=== PATIENT | female | born 1990 | race Caucasian/White ===

== ENCOUNTER 2017-06-06 14:24 | Inpatient (IN) | payer OTHER ==
[~2017-06-06] VITALS: Ht 165.1 cm; Wt 72.7 kg
[~2017-06-06 14:24] MED LIST: IBUP800T25 PO; PREN-39 PO
[2017-06-06] MEDS ORDERED: CARBOPROST 250 MCG INJ IM PRN ×2 (15:00→23:00)
[2017-06-06] MEDS ORDERED: OXYTOCIN 30 UNITS/LR 500 ML IV SCH (15:00)
[2017-06-06] MEDS ORDERED: METHYLERGONOVINE 0.2 MG INJ IM PRN ×2 (15:00→23:00)
[2017-06-06] MEDS ORDERED: OXYTOCIN 30 UNITS/LR 500 ML IV PRN ×2 (15:00→23:00)
[2017-06-06] MEDS ORDERED: MISOPROSTOL 200 MCG TAB PR PRN ×2 (15:00→23:00)
[2017-06-06] MEDS ORDERED: CEFAZOLIN 2 GM/50 ML (PMX) 50 ML IV SCH (15:00)
[2017-06-06 15:06] VITALS: Ht 165.1 cm; Wt 72.7 kg
[2017-06-06 15:08] VITALS: BP 114/63; PULSE 120; RESP 20
[2017-06-06] MEDS: LACTATED RINGER'S 1,000 ML IV SCH ×2 (15:12→17:14)
[2017-06-06 15:55] LABS: ADD SCAN DIFF NO
[2017-06-06 16:03] LABS: BASOPHILS % 0.4 % (0.0-2.0); EOSINOPHILS % 0.4 % (0.0-7.0); HEMATOCRIT 36.5 % (37.0-47.0); HEMOGLOBIN 12.1 g/dl (12.0-16.0); LYMPHOCYTES # 1.4 10^3/ul (0.8-2.9); LYMPHOCYTES % 13.8 % (15.0-51.0); MEAN CORPUSCULAR HGB CONC 33.2 g/dl (32.0-37.0); MEAN CORPUSCULAR VOLUME 90.6 fl (82.0-101.0); MEAN PLATELET VOLUME 11.2 fl (7.4-10.4); MONOCYTE # 0.7 10^3/ul (0.3-0.9); MONOCYTES % 6.7 % (0.0-11.0); NEUTROPHIL # 7.7 10^3/ul (1.6-7.5); NEUTROPHILS % 78.2 % (39.0-77.0); PLATELET COUNT 318 10^3/UL (140-415); RED BLOOD COUNT 4.03 10^6/ul (4.20-5.40); RED CELL DISTRIBUTION WIDTH 13.2 % (11.5-14.5); WHITE BLOOD COUNT 9.9 10^3/ul (4.8-10.8)
[2017-06-06 16:19] LABS: INR 0.91; PROTIME 12.3 Sec (12.2-14.2)
[2017-06-06 16:20] LABS: PARTIAL THROMBOPLASTIN TIME 31.5 Sec (25.0-35.0)
[2017-06-06] MEDS ORDERED: CITRIC ACID/NA CITRATE 30 ML CUP ONE (16:22)
[2017-06-06] MEDS ORDERED: CITRIC ACID/NA CITRATE 30 ML CUP PO ONE (16:30)
--- NOTE | 2017-06-06 18:47 | HP ---
Date/Time of Note Date/Time of Note DATE: 06/06/17 TIME: 18:43 OB - History Hx of Present Chief Complaint: scheduled Estimated Due Date: Jun 13, 2017 : 3 Para: 1 Spontaneous : 0 Therapeutic : 1 Care: Good Care Ultrasounds: Normal mid trimester US Obstetrical Complications: None Medical Complications: None Past Family/Social History * Past Medical, Surgical, Family and Obstetric Histories reviewed from chart. GBS Status: Negative OB Admission Exam Vital Signs Vital Signs Vital Signs Date Time Temp Pulse Resp B/P Pulse Ox O2 Delivery O2 Flow Rate FiO2 06/06/17 15:08 98.1 120 20 114/63 97 Room Air Physical Exam HEENT: WNL Heart: Rhythm Normal Lungs: Clear, Equal Abdomen: WNL Extremities: Normal Reflexes: Normal Heart Rate: 130's Accelerations: Accelerations Present Decelerations: No Decelerations Varibility: Moderate Last 72 hours Lab Results CBC & BMP 06/06/17 14:50 OB Assessment/Plan Reason for admission: section, other Other Assessment: at 39 weeks with previous Plan: Section STEVIE CHOPRA MD Jun 06, 2017 18:47
[2017-06-06] MEDS ORDERED: METOCLOPRAMIDE 10 MG INJ ONE (18:55)
[2017-06-06] MEDS ORDERED: morphine SULFATE/PF (10 MG/10 ML) INJ ONE (18:55)
[2017-06-06] MEDS ORDERED: OXYTOCIN 30 UNITS/LR 500 ML IV ONE ×2 (18:55→20:00)
[2017-06-06] MEDS ORDERED: KETOROLAC 30 MG INJ ONE (18:55)
[2017-06-06] MEDS ORDERED: PHENYLephrine (100 MCG/ML) 5ML SYG ONE (19:11)
[2017-06-06] MEDS ORDERED: EPHEDrine SULFATE 50 MG/5 ML SYG ONE (19:31)
[2017-06-06] MEDS ORDERED: FENTAnyl 50 MCG/ML VIAL ONE (19:43)
[2017-06-06] MEDS ORDERED: ONDANSETRON 4 MG INJ IV PRN ×2 (20:30)
[2017-06-06] MEDS ORDERED: NALOXONE (0.4 MG/ML) INJ IV PRN (20:30)
[2017-06-06] MEDS ORDERED: HYDROmorphONE 1 MG/ML SYG IV PRN ×3 (20:30)
[2017-06-06] MEDS ORDERED: MEPERIDINE 25 MG INJ IV PRN (20:30)
[2017-06-06] MEDS ORDERED: HYDROmorphONE (0.2 MG/ML) 10ML SYG IV PRN ×3 (20:30)
[2017-06-06] MEDS ORDERED: KETOROLAC 30 MG INJ IV PRN (20:30)
[2017-06-06] MEDS ORDERED: DIPHENHYDRAMINE 50 MG INJ IV PRN ×2 (20:30)
[2017-06-06] MEDS ORDERED: METOCLOPRAMIDE 10 MG INJ IV PRN (20:30)
[2017-06-06 22:20] VITALS: BP 119/63; PULSE 62; RESP 20
[2017-06-06] MEDS ORDERED: OXYCODONE/ACETAMINOPHEN (5/325) TAB PO PRN (23:00)
[2017-06-06] MEDS ORDERED: LANOLIN 7 GM TUBE TOP PRN (23:00)
[2017-06-07] VITALS: BP 120/57; PULSE 70; RESP 20
[2017-06-07] MEDS: OXYTOCIN 30 UNITS/LR 500 ML IV SCH ×2 (01:40→02:39)
[2017-06-07 04:00] VITALS: BP 113/57; PULSE 73; RESP 18
[2017-06-07] MEDS: LACTATED RINGER'S 1,000 ML IV SCH ×4 (05:40→22:39)
[2017-06-07 08:15] VITALS: BP 120/54; PULSE 61; RESP 18
[2017-06-07] MEDS: SENNA/DOCUSATE NA (8.6MG/50MG) TAB PO SCH ×2 (09:49→21:14)
[2017-06-07 11:14] LABS: ADD SCAN DIFF NO
[2017-06-07 11:16] LABS: BASOPHILS % 0.3 % (0.0-2.0); EOSINOPHILS % 0.5 % (0.0-7.0); HEMATOCRIT 32.1 % (37.0-47.0); HEMOGLOBIN 10.9 g/dl (12.0-16.0); LYMPHOCYTES % 11.7 % (15.0-51.0); MEAN CORPUSCULAR HEMOGLOBIN 31.1 pg (29.0-33.0); MEAN CORPUSCULAR VOLUME 91.5 fl (82.0-101.0); MEAN PLATELET VOLUME 10.6 fl (7.4-10.4); MONOCYTE # 0.8 10^3/ul (0.3-0.9); MONOCYTES % 9.2 % (0.0-11.0); NEUTROPHIL # 6.9 10^3/ul (1.6-7.5); PLATELET COUNT 218 10^3/UL (140-415); RED BLOOD COUNT 3.51 10^6/ul (4.20-5.40); WHITE BLOOD COUNT 8.8 10^3/ul (4.8-10.8)
[2017-06-07 12:00] VITALS: BP 113/60; PULSE 64; RESP 18
[2017-06-07 15:56] VITALS: BP 110/59; PULSE 64; RESP 18
[2017-06-07 20:00] VITALS: BP 110/62; PULSE 70; RESP 20
--- NOTE | 2017-06-07 20:22 | QN ---
Documentation Comment No complaint Afebrile VSS Abdomen soft Stable Advance diet. STEVIE CHOPRA MD Jun 07, 2017 20:22
[2017-06-07] MEDS: IBUPROFEN 800 MG TAB PO SCH (21:14)
[2017-06-07] MEDS: OXYCODONE/ACETAMINOPHEN (5/325) TAB PO PRN (23:56)
[2017-06-08 04:13] VITALS: BP 116/74; PULSE 75; RESP 20
[2017-06-08] MEDS: IBUPROFEN 800 MG TAB PO SCH ×3 (05:22→21:24)
[2017-06-08] MEDS: LACTATED RINGER'S 1,000 ML IV SCH ×3 (06:39→22:39)
[2017-06-08 08:00] VITALS: BP 113/60; PULSE 54; RESP 18
[2017-06-08] MEDS: SENNA/DOCUSATE NA (8.6MG/50MG) TAB PO SCH ×2 (08:34→21:24)
[2017-06-08] MEDS: OXYCODONE/ACETAMINOPHEN (5/325) TAB PO PRN (08:35)
--- NOTE | 2017-06-08 10:57 | PN ---
Date/Time of Note Date/Time of Note DATE: 06/07/2017 TIME: 10:55 A 26 year female s/p duramorph pod # 1 is doing well no itching, back pain, headache, n/v. pain is controlled. back is clean. care per surgery Assessment/Plan VTE Prophylaxis VTE Prophylaxis Intervention: ambulation Lines/Catheters IV Catheter Type (from Nrsg): Peripheral IV Exam/Review of Systems Vital Signs Vitals Vital Signs Date Time Temp Pulse Resp B/P Pulse Ox O2 Delivery O2 Flow Rate FiO2 06/08/17 08:00 97.7 54 18 113/60 Room Air 06/07/17 11:28 95 21 Intake and Output 06/07/17 06/07/17 06/08/17 14:59 22:59 06:59 Intake Total 750 ml 1000 ml Output Total 300 ml 2100 ml 600 ml Balance 450 ml -1100 ml -600 ml Results Result Diagram: 06/07/17 1105 Results 24 hrs Laboratory Tests Test 06/07/17 11:05 White Blood Count 8.8 Red Blood Count 3.51 L Hemoglobin 10.9 L Hematocrit 32.1 L Mean Corpuscular Volume 91.5 Mean Corpuscular Hemoglobin 31.1 Mean Corpuscular Hemoglobin Concent 34.0 Red Cell Distribution Width 13.0 Platelet Count 218 # Mean Platelet Volume 10.6 H Neutrophils % 78.0 H Lymphocytes % 11.7 L Monocytes % 9.2 Eosinophils % 0.5 Basophils % 0.3 Neutrophils # 6.9 Lymphocytes # 1.0 Monocytes # 0.8 Eosinophils # 0.0 Basophils # 0.0 Nucleated Red Blood Cells # 0.0 Medications Medications Current Medications Lactated Ringer's (Lr) 1,000 ml @ 125 mls/hr Q8H IV Last administered on 13:11; Admin Dose 125 MLS/HR; Start 06/06/17 at 22:39 Oxycodone/ Acetaminophen (Percocet (5/ 325)) 1 tab Q4H PRN PO PAIN LEVEL 4-6; Start 06/06/17 at 23:00 Oxycodone/ Acetaminophen (Percocet (5/ 325)) 2 tab Q4H PRN PO PAIN LEVEL 7-10 Last administered on 06/08/17 08:35; Admin Dose 2 TAB; Start 06/06/17 at 23:00 Ibuprofen (Motrin) 800 mg Q8 PO Last administered on 06/08/17 05:22; Admin Dose 800 MG; Start 06/07/17 at 22:00 Simethicone (Mylicon) 160 mg Q8H PRN PO DISTENSION/GAS/BLOATING Last administered on 06/07/17 21:15; Admin Dose 160 MG; Start 06/06/17 at 23:00 Senna/Docusate Sodium (Senokot-S) 1 tab BID PO Last administered on 06/08/17 08:34; Admin Dose 1 TAB; Start 06/07/17 at 09:00 Diphtheria/ Tetanus/Acell Pertussis 0.5 ml 0.5 ml ONCE ONCE IM* ; Start at 09:00; Stop 06/09/17 at 09:01 Oxytocin/Lactated Ringer's 500 ml @ 0 mls/hr ONCE PRN IV For Hemorrhage Management; Start 06/06/17 at 23:00 Methylergonovine Maleate (Methergine) 0.2 mg ONCE PRN IM VAGINAL BLEEDING; Start 06/06/17 at 23:00 Carboprost Tromethamine (Hemabate) 250 mcg ONCE PRN IM VAGINAL BLEEDING; Start 06/06/17 at 23:00 Misoprostol (Cytotec) 1,000 mcg ONCE PRN ID VAGINAL BLEEDING; Start 06/06/17 at 23:00 EARL MORAN MD Jun 08, 2017 10:57
[2017-06-08 16:00] VITALS: BP 126/71; PULSE 68; RESP 18
[2017-06-08] MEDS ORDERED: IBUP800T25 PO (16:03)
--- NOTE | 2017-06-08 16:04 | DS ---
Date/Time of Note Date/Time of Note DATE: 06/08/17 TIME: 16:04 Obstetrical Discharge Record Final Diagnosis Final Diagnosis: Term delivered Section Section: Repeat Condition on Discharge Physical Assessment Voiding: Yes Breast: Soft, non-tender Fundus: Firm Abdomen and Incision: incision intact Calf Tenderness: No Patient Condition: Stable STEVIE CHOPRA MD Jun 08, 2017 16:04
[2017-06-08 19:58] VITALS: BP 117/62; PULSE 72; RESP 20
[2017-06-09 04:04] VITALS: BP 120/69; PULSE 74; RESP 20
--- NOTE | 2017-06-09 05:02 | OPR ---
DATE OF OPERATION: 06/06/2017 PREOPERATIVE DIAGNOSIS: at 39 weeks with previous section. POSTOPERATIVE DIAGNOSIS: at 39 weeks with previous section. OPERATION PERFORMED: Repeat low-transverse section. SURGEON: Israel Ferraro MD SPOTLIGHT OPERATOR: Nichole Espino MD. ANESTHESIA: Spinal anesthesia with Dr. Moscoso. OPERATIVE PROCEDURE: The patient was taken to the operating and placed on the operating table. After successful spinal anesthesia was given the patient was placed in the supine position. The area was prepared and draped in the usual sterile fashion. Spinal anesthesia was [____] satisfactory. Using scalpel a Pfannenstiel incision was made about 2 fingerbreadths above the symphysis pubis. The incision was carried to the fascia. The fascia was incised and extended bilaterally with Edwards scissors. Two Nithya's were used to separate the fascia from the muscle. The muscle was dissected down to the peritoneum. The peritoneum was [____] and incised with Metzenbaum scissors. Using a scalpel a small transverse incision was made on the lower segment. We used [____] entering the intrauterine cavity. [____] to extend the incision bilaterally. The baby was delivered from cephalic presentation. After suctioning of the amniotic fluid the baby was handed off the team in attendance. Apgars were 8 and 9. The placenta was delivered without difficulty. The uterus was closed with number 1 Monocryl in continuous lock type fashion. Excellent hemostasis. Both ovaries and tubes were inspected [____]. The peritoneal cavity was irrigated with warm saline. The peritoneum was closed with 2-0 Vicryl continuous. The fascia was closed with number 1 Vicryl continuous in 2 segments. The skin was closed with bryn. Estimated Blood Loss was 600 mL. Complications none. All counts were correct. Dictated By: Israel Ferraro MD /[email or web address]/[email or web address] /Document#: [id number]
[2017-06-09] MEDS: IBUPROFEN 800 MG TAB PO SCH ×2 (05:25→13:55)
[2017-06-09] MEDS: LACTATED RINGER'S 1,000 ML IV SCH (06:39)
[2017-06-09 07:55] VITALS: BP 117/68; PULSE 52; RESP 16
[2017-06-09] MEDS: SENNA/DOCUSATE NA (8.6MG/50MG) TAB PO SCH (08:35)
[2017-06-09] MEDS ORDERED: DIPHTH/TET/ACEL PERTUSS (ADULT) 0.5 ML VIAL IM* ONE (09:00)
[2017-06-09 16:19] VITALS: BP 124/66; PULSE 54; RESP 16
== END 2017-06-09 18:35 | disposition home or self-care (01) | DRG 766 ==
LOC: L-D 14:24 → PP1 22:21
PROVIDERS: ADMIT Obstetrics & Gynecology; ATTEND Obstetrics & Gynecology
PROC: 10D00Z1 Extraction of Products of Conception, Low, Open Approach (ICD-10-PCS; principal; 2017-06-06 17:00)
DX: O34.211 Maternal care for low transverse scar from previous cesarean delivery (principal); Z37.0 Single live birth; Z3A.39 39 weeks gestation of pregnancy
CPT/HCPCS: 85025; 85610; 85730; 86592; 86850; 86870; 86900; 86901; 86902; 87340; 90715; 94760; 99464; J0690; J1885; J2274; J2370; J2405; J2590; J2765; J3010; J7120

== ENCOUNTER 2017-08-03 13:26 | Emergency (ER) | payer OTHER ==
[~2017-08-03] VITALS: Ht 165.1 cm; Wt 62.0 kg
[2017-08-03 13:31] VITALS: Ht 165.1 cm; Wt 62.0 kg
[2017-08-03] MEDS ORDERED: SOD CHLORIDE 0.9% 1,000 ML IV STA (14:56)
[2017-08-03 15:47] LABS: EOSINOPHILS # 0.2 10^3/ul (0.0-0.5); LYMPHOCYTES # 0.9 10^3/ul (0.8-2.9); NEUTROPHIL # 4.3 10^3/ul (1.6-7.5); PLATELET COUNT 353 10^3/UL (140-415); RED CELL DISTRIBUTION WIDTH 13.2 % (11.5-14.5)
[2017-08-03 16:02] LABS: INR 1.02; PROTIME 13.4 Sec (12.2-14.2)
[2017-08-03 16:03] LABS: PARTIAL THROMBOPLASTIN TIME 27.9 Sec (25.0-35.0)
[2017-08-03 16:06] LABS: ALBUMIN 4.4 g/dl (3.3-4.9); ALBUMIN/GLOBULIN RATIO 1.41; BILIRUBIN,INDIRECT 0.6 mg/dl (0-1.1); BILIRUBIN,TOTAL 0.6 mg/dl (0.2-1.3); CALCIUM 9.6 mg/dl (8.4-10.2); CREATININE 0.71 mg/dl (0.44-1.00); POTASSIUM 4.2 mmol/L (3.5-5.1); TOTAL PROTEIN 7.5 g/dl (6.1-8.1)
[2017-08-03 16:15] LABS: POSITIVE DIFF N
[2017-08-03] MEDS ORDERED: SOD CHLORIDE 0.9% 100 ML ONE (16:17)
[2017-08-03] MEDS ORDERED: IOHEXOL 300MG/ML 150 ML BTL ONE (16:17)
[2017-08-03 16:23] LABS: BASOPHILS % 0.5 % (0.0-2.0); EOSINOPHILS % 3.3 % (0.0-7.0); HEMATOCRIT 40.8 % (37.0-47.0); HEMOGLOBIN 13.4 g/dl (12.0-16.0); LYMPHOCYTES % 13.9 % (15.0-51.0); MEAN CORPUSCULAR HEMOGLOBIN 29.3 pg (29.0-33.0); MEAN CORPUSCULAR HGB CONC 32.8 g/dl (32.0-37.0); MEAN CORPUSCULAR VOLUME 89.3 fl (82.0-101.0); MEAN PLATELET VOLUME 10.2 fl (7.4-10.4); MONOCYTE # 0.8 10^3/ul (0.3-0.9); MONOCYTES % 12.4 % (0.0-11.0); NEUTROPHILS % 69.6 % (39.0-77.0); RED BLOOD COUNT 4.57 10^6/ul (4.20-5.40); WHITE BLOOD COUNT 6.1 10^3/ul (4.8-10.8)
--- NOTE | 2017-08-03 16:46 | ERD ---
ER Documentation Chief Complaint Date/Time DATE: 08/03/17 TIME: 16:42 Chief Complaint RIGHT SHOULDER PAIN X 1 WEEK, NO INJURY HPI Patient is a 26-year-old female who is 2 months post presents to the ED with face swelling and chest swelling and right-sided neck pain, shortness of breath x 1 week. She states that about a week ago she felt swelling to the left side her face and now it has gone to the right side and her chest. She states that she also sees all her blood vessels on her chest and she is unable to visualize her clavicles due to the swelling. She denies leg pain or leg swelling. States left wisdom tooth is erupting but denies pain. She denies abdominal pain, nausea, vomiting or diarrhea. Denies chest pain. No other complaints. ROS All systems reviewed and are negative except as per history of present illness. Medications Home Meds Active Scripts Ibuprofen* (Motrin*) 800 Mg Tab, 800 MG PO TID Y for PAIN, #30 TAB Prov:STEVIE CHOPRA MD 06/08/17 Reported Medications Vits W-Ca,Fe,Fa(<1MG) ( Vitamins) 1 Tab Tablet, 1 TAB PO DAILY for 7 Days 07/02/14 Allergies Allergies: Coded Allergies: No Known Allergy (Unverified , 08/03/17) PMhx/Soc History of Surgery: No Anesthesia Reaction: No Hx Neurological Disorder: No Hx Respiratory Disorders: No Hx Cardiac Disorders: No Hx Psychiatric Problems: No Hx Miscellaneous Medical Probl: No Hx Alcohol Use: No Hx Substance Use: No Hx Tobacco Use: No Smoking Status: Never smoker Physical Exam Vitals Vital Signs Date Time Temp Pulse Resp B/P Pulse Ox O2 Delivery O2 Flow Rate FiO2 08/03/17 13:31 98.4 113 20 138/82 98 Physical Exam GENERAL: Well-developed, well-nourished female. Appears in no acute distress. HEAD: Normocephalic, atraumatic, swollen face. EYES: Pupils are equally reactive bilaterally. EOMs grossly intact. No conjunctival erythema. ENT: Moist mucous membranes. No uvula deviation. No kissing tonsils. No exudates. no signs of dental abscess NECK: Supple. No lymphadenopathy or thyromegaly. No meningismus. negative kernig. negative brudinski. tenderness to right side of neck. chest is swollen with visible vessels. LUNG: Clear to auscultation bilaterally. No rhonchi, wheezing, rales or coarse breath sounds. HEART: Regular rate and rhythm. No murmurs, rubs or gallops. BACK: No midline tenderness. Extremities: Equal pulses bilaterally. No peripheral clubbing, cyanosis or edema. No unilateral leg swelling. NEUROLOGIC: Alert and oriented. Moving all four extremities. 5/5 strength in all extremities. Normal speech. Steady gait. SKIN: Normal color. Warm and dry. No rashes or lesions. Capillary refill < 2 seconds Result Diagram: 08/03/17 1525 08/03/17 1525 Results 24 hrs Laboratory Tests Test 08/03/17 15:25 08/03/17 16:55 White Blood Count 6.110^3/ul Red Blood Count 4.5710^6/ul Hemoglobin 13.4g/dl Hematocrit 40.8% Mean Corpuscular Volume 89.3fl Mean Corpuscular Hemoglobin 29.3pg Mean Corpuscular Hemoglobin Concent 32.8g/dl Red Cell Distribution Width 13.2% Platelet Count 13467^3/UL Mean Platelet Volume 10.2fl Neutrophils % 69.6% Lymphocytes % 13.9% Monocytes % 12.4% Eosinophils % 3.3% Basophils % 0.5% Nucleated Red Blood Cells % 0.0/100WBC Neutrophils # 4.310^3/ul Lymphocytes # 0.910^3/ul Monocytes # 0.810^3/ul Eosinophils # 0.210^3/ul Basophils # 0.010^3/ul Nucleated Red Blood Cells # 0.010^3/ul Prothrombin Time 13.4Sec Prothrombin Time Ratio 1.0 INR International Normalized Ratio 1.02 Activated Partial Thromboplast Time 27.9Sec Sodium Level 140mmol/L Potassium Level 4.2mmol/L Chloride Level 105mmol/L Carbon Dioxide Level 25mmol/L Anion Gap 14 Blood Urea Nitrogen 9mg/dl Creatinine 0.71mg/dl Glucose Level 92mg/dl Calcium Level 9.6mg/dl Total Bilirubin 0.6mg/dl Direct Bilirubin 0.00mg/dl Indirect Bilirubin 0.6mg/dl Aspartate Amino Transf (AST/SGOT) 45IU/L Alanine Aminotransferase (ALT/SGPT) 44IU/L Alkaline Phosphatase 92IU/L Total Protein 7.5g/dl Albumin 4.4g/dl Globulin 3.10g/dl Albumin/Globulin Ratio 1.41 Urine Color YELLOW Urine Clarity SLIGHTLY CLOUDY Urine pH 5.0 Urine Specific [place] 1.043 Urine Ketones TRACEmg/dL Urine Nitrite NEGATIVEmg/dL Urine Bilirubin NEGATIVEmg/dL Urine Urobilinogen NEGATIVEmg/dL Urine Leukocyte Esterase TRACELeu/ul Urine Microscopic RBC 2/HPF Urine Microscopic WBC 5/HPF Urine Squamous Epithelial Cells MANY/HPF Urine Amorphous Crystals FEW/HPF Urine Mucus MODERATE/HPF Urine Hemoglobin NEGATIVEmg/dL Urine Glucose NEGATIVEmg/dL Urine Total Protein NEGATIVEmg/dl Current Medications Medications (Trade) Dose Ordered Sig/Kale Route PRN Reason Start Time Stop Time Status Last Admin Dose Admin Sodium Chloride (NS) 1,000 ml @ 1,000 mls/hr Q1H STAT IV 08/03/17 14:56 08/03/17 15:55 DC 08/03/17 15:39 Iohexol 150 ml 150 ml STK-MED ONCE .ROUTE 08/03/17 16:17 08/03/17 16:18 DC Sodium Chloride (NS) 100 ml @ ud STK-MED ONCE .ROUTE 08/03/17 16:17 08/03/17 16:18 DC Procedures/MDM ER COURSE: I kept the patient and/or family informed of laboratory and diagnostic imaging results throughout the emergency room course. EKG, MONITORS, & DIAGNOSTIC IMAGING: [] PROCEDURES: [] MEDICATIONS: [] LAB INTERPRETATION: CBC showed no evidence of systemic infection or severe anemia. CMP showed no evidence of electrolyte abnormalities, severe acidosis, alkalosis, renal failure , or liver disease. Lipase showed no evidence of acute pancreatitis. UA showed no evidence of leukocytes, nitrites or hematuria. Urine test was negative. MEDICAL DECISION MAKING: This is a 26 year old female who presents with facial and chest swelling and visible blood vessels to chest.. Vital signs were reviewed. Patient is afebrile. Patient is not hypoxic. I consulted with my supervising physician Dr. Ritchie who advised to order blood work and CT chest with contrast. DISCHARGE: POLI OLIVARES PA-C Aug 03, 2017 16:46
[2017-08-03 17:49] LABS: ADD UMIC YES; UR AMORPHOUS CRYSTAL FEW /HPF (NONE SEEN); UR ASCORBIC ACID NEGATIVE (NEGATIVE); UR BILIRUBIN (Dip) NEGATIVE (NEGATIVE); UR BLOOD (Dip) NEGATIVE (NEGATIVE); UR CLARITY SLIGHTLY CLOUDY (CLEAR); UR COLOR YELLOW (YELLOW); UR GLUCOSE (Dip) NEGATIVE (NEGATIVE); UR KETONES (Dip) TRACE mg/dL (NEGATIVE); UR LEUKOCYTE ESTERASE (Dip) TRACE Leu/ul (NEGATIVE); UR MUCUS MODERATE /HPF (NONE SEEN); UR NITRITE (Dip) NEGATIVE (NEGATIVE); UR RBC 2 /HPF (0-5); UR SPECIFIC GRAVITY (Dip) 1.043 (1.003-1.030); UR SQUAMOUS EPITHELIAL CELL MANY /HPF (FEW); UR TOTAL PROTEIN (Dip) NEGATIVE (NEGATIVE); UR UROBILINOGEN (Dip) NEGATIVE (NEGATIVE)
--- NOTE | 2017-08-03 18:03 | RADRPT ---
AMENDMENT: 08/03/2017 9:06:02 PM Letitia Killian M.D Results were called to ANGELINE Ignacio at 08/03/2017 6:05 PM PROCEDURE: CT Chest with contrast. CLINICAL INDICATION: sob, swelling, chest pain . Swelling, SVC syndrome TECHNIQUE: CT scan of the chest with contrast was performed on a multidetector high-resolution CT scanner. The patient was scanned following the uncomplicated intravenous administration of 100 cc o f Omnipaque-300 contrast. Coronal and sagittal reformatted images were obtained from the axial sour ce images. Images were reviewed on a high-resolution PACS workstation. The total exam CTDI equals 8. 44 mGy and the total exam DLP equals 307.4 mGy-cm. One or more of the following dose reduction techn iques were used: automated exposure control, adjustment of the mA and/or kV according to patient siz e, or use of iterative reconstruction technique. COMPARISON: None available FINDINGS: Moderate right, small left pleural effusions and atelectasis are visualized. No pneumothorax is see n. The central tracheobronchial tree is clear There is a superior anterior mediastinal soft tissue mass with minimal enhancement measuring 7.3 x 1 2.7 x 14 cm. Adjacent compressive atelectasis in the medial upper lobe. Severe compression or occlus ion of the superior vena cava and multiple collateral vessels are visualized. The azygos vein is dil ated. There is compression of the trachea, mass effect on the aorta, and pulmonary arteries. The ao rtic arch is displaced posteriorly to the left. The heart is dilated with a small pericardial effus ion. Mildly enlarged left axillary lymph nodes are seen. Multiple small supraclavicular lymph nodes and s ubcutaneous edema. The visualized thyroid gland is unremarkable. Imaging obtained through the upper abdomen reveals intense enhancement in the anterior aspect of the medial left hepatic lobe which ca n be seen in SVC obstruction. Sclerotic lesions are seen in the T2, T3, T4 vertebral bodies IMPRESSION: 1. Large heterogeneous anterior mediastinum as described above with SVC occlusion. Multiple collate ral vessels and dilated azygos vein. 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 Mild left axillary lymphadenopathy. 3. Sclerotic lesions in the vertebral bodies consistent with metastatic disease. Spencer Killian, Physician Date Time Electronically viewed and signed by Spencer Killian, Physician on 08/03/2017 18:06 /
--- NOTE | 2017-08-03 19:31 | ERA ---
ER Documentation Chief Complaint Date/Time DATE: 08/03/17 TIME: 19:21 Chief Complaint Neck and chest swelling HPI Patient is a 26-year-old female who is 2 months post presents to the ED with face swelling and chest swelling and right-sided neck pain, shortness of breath x 1 week. She states that about a week ago she felt swelling to the left side her face and now it has gone to the right side and her chest. She states that she also sees all her blood vessels on her chest and she is unable to visualize her clavicles due to the swelling. She denies leg pain or leg swelling. States left wisdom tooth is erupting but denies pain. She denies abdominal pain, nausea, vomiting or diarrhea. Denies chest pain. No other complaints. ROS All systems reviewed and are negative except as per history of present illness. Medications Home Meds Active Scripts Ibuprofen* (Motrin*) 800 Mg Tab, 800 MG PO TID Y for PAIN, #30 TAB Prov:STEVIE CHOPRA MD 06/08/17 Reported Medications Vits W-Ca,Fe,Fa(<1MG) ( Vitamins) 1 Tab Tablet, 1 TAB PO DAILY for 7 Days 07/02/14 Allergies Allergies: Coded Allergies: No Known Allergy (Unverified , 08/03/17) PMhx/Soc History of Surgery: No Anesthesia Reaction: No Hx Neurological Disorder: No Hx Respiratory Disorders: No Hx Cardiac Disorders: No Hx Psychiatric Problems: No Hx Miscellaneous Medical Probl: No Hx Alcohol Use: No Hx Substance Use: No Hx Tobacco Use: No Smoking Status: Never smoker FmHx Family History: No coronary disease Physical Exam Vitals Vital Signs Date Time Temp Pulse Resp B/P Pulse Ox O2 Delivery O2 Flow Rate FiO2 08/03/17 13:31 98.4 113 20 138/82 98 Physical Exam Const: Well-developed, well-nourished Head: Atraumatic, normocephalic Eyes: Normal Conjunctiva, PERRLA, EOMI, normal sclera, no nystagmus ENT: Normal External Ears, Nose and Mouth, moist mucus membranes. Neck: Full range of motion. No meningismus, no lymphadenopathy, swelling to neck and upper chest was subcutaneous edema with vascular congestion. Resp: Clear to auscultation bilaterally, no wheezing, rhonchi, rales Cardio: Regular rate and rhythm, no murmurs, S1 S2 present Abd: Soft, non tender x 4, non distended. Normal bowel sounds, no guarding or rebound, no pulsitile abdominal masses or bruits Skin: No petechiae or rashes, no ecchymosis , no maculopapular rash Back: No midline or flank tenderness Ext: No cyanosis, or edema, FROM x 4, normal inspection, neurovascularly intact x 4 Neur: Awake and alert, STR 5/5 x 4, sensation intact x 4, no focal findings, cerebellum intact Psych: Normal Mood and Affect Result Diagram: 08/03/17 1525 08/03/17 1525 Results 24 hrs Laboratory Tests Test 08/03/17 15:25 08/03/17 16:55 White Blood Count 6.110^3/ul Red Blood Count 4.5710^6/ul Hemoglobin 13.4g/dl Hematocrit 40.8% Mean Corpuscular Volume 89.3fl Mean Corpuscular Hemoglobin 29.3pg Mean Corpuscular Hemoglobin Concent 32.8g/dl Red Cell Distribution Width 13.2% Platelet Count 26880^3/UL Mean Platelet Volume 10.2fl Neutrophils % 69.6% Lymphocytes % 13.9% Monocytes % 12.4% Eosinophils % 3.3% Basophils % 0.5% Nucleated Red Blood Cells % 0.0/100WBC Neutrophils # 4.310^3/ul Lymphocytes # 0.910^3/ul Monocytes # 0.810^3/ul Eosinophils # 0.210^3/ul Basophils # 0.010^3/ul Nucleated Red Blood Cells # 0.010^3/ul Prothrombin Time 13.4Sec Prothrombin Time Ratio 1.0 INR International Normalized Ratio 1.02 Activated Partial Thromboplast Time 27.9Sec Sodium Level 140mmol/L Potassium Level 4.2mmol/L Chloride Level 105mmol/L Carbon Dioxide Level 25mmol/L Anion Gap 14 Blood Urea Nitrogen 9mg/dl Creatinine 0.71mg/dl Glucose Level 92mg/dl Calcium Level 9.6mg/dl Total Bilirubin 0.6mg/dl Direct Bilirubin 0.00mg/dl Indirect Bilirubin 0.6mg/dl Aspartate Amino Transf (AST/SGOT) 45IU/L Alanine Aminotransferase (ALT/SGPT) 44IU/L Alkaline Phosphatase 92IU/L Total Protein 7.5g/dl Albumin 4.4g/dl Globulin 3.10g/dl Albumin/Globulin Ratio 1.41 Urine Color YELLOW Urine Clarity SLIGHTLY CLOUDY Urine pH 5.0 Urine Specific [place] 1.043 Urine Ketones TRACEmg/dL Urine Nitrite NEGATIVEmg/dL Urine Bilirubin NEGATIVEmg/dL Urine Urobilinogen NEGATIVEmg/dL Urine Leukocyte Esterase TRACELeu/ul Urine Microscopic RBC 2/HPF Urine Microscopic WBC 5/HPF Urine Squamous Epithelial Cells MANY/HPF Urine Amorphous Crystals FEW/HPF Urine Mucus MODERATE/HPF Urine Hemoglobin NEGATIVEmg/dL Urine Glucose NEGATIVEmg/dL Urine Total Protein NEGATIVEmg/dl Current Medications Medications (Trade) Dose Ordered Sig/Kale Route PRN Reason Start Time Stop Time Status Last Admin Dose Admin Sodium Chloride (NS) 1,000 ml @ 1,000 mls/hr Q1H STAT IV 08/03/17 14:56 08/03/17 15:55 DC 08/03/17 15:39 Iohexol 150 ml 150 ml STK-MED ONCE .ROUTE 08/03/17 16:17 08/03/17 16:18 DC Sodium Chloride (NS) 100 ml @ ud STK-MED ONCE .ROUTE 08/03/17 16:17 08/03/17 16:18 DC Procedures/MDM AMENDMENT: 08/03/2017 9:06:02 PM Letitia Killian M.D Results were called to ANGELINE Ignacio at 08/03/2017 6:05 PM PROCEDURE: CT Chest with contrast. CLINICAL INDICATION: sob, swelling, chest pain . Swelling, SVC syndrome TECHNIQUE: CT scan of the chest with contrast was performed on a multidetector high-resolution CT scanner. The patient was scanned following the uncomplicated intravenous administration of 100 cc of Omnipaque-300 contrast. Coronal and sagittal reformatted images were obtained from the axial source images. Images were reviewed on a high-resolution PACS workstation. The total exam CTDI equals 8.44 mGy and the total exam DLP equals 307.4 mGy-cm. One or more of the following dose reduction techniques were used: automated exposure control, adjustment of the mA and/or kV according to patient size, or use of iterative reconstruction technique. COMPARISON: None available FINDINGS: Moderate right, small left pleural effusions and atelectasis are visualized. No pneumothorax is seen. The central tracheobronchial tree is clear There is a superior anterior mediastinal soft tissue mass with minimal enhancement measuring 7.3 x 12.7 x 14 cm. Adjacent compressive atelectasis in the medial upper lobe. Severe compression or occlusion of the superior vena cava and multiple collateral vessels are visualized. The azygos vein is dilated. There is compression of the trachea, mass effect on the aorta, and pulmonary arteries. The aortic arch is displaced posteriorly to the left. The heart is dilated with a small pericardial effusion. Mildly enlarged left axillary lymph nodes are seen. Multiple small supraclavicular lymph nodes and subcutaneous edema. The visualized thyroid gland is unremarkable. Imaging obtained through the upper abdomen reveals intense enhancement in the anterior aspect of the medial left hepatic lobe which can be seen in SVC obstruction. Sclerotic lesions are seen in the T2, T3, T4 vertebral bodies IMPRESSION: 1. Large heterogeneous anterior mediastinum as described above with SVC occlusion. Multiple collateral vessels and dilated azygos vein. 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 Mild left axillary lymphadenopathy. 3. Sclerotic lesions in the vertebral bodies consistent with metastatic disease. Physician Jared Date Time Electronically viewed and signed by Physician Jared on 08/03/2017 18: 06 CS/ CC: POLI OLIVARES PA-C EKG: Rate/Rhythm: Normal sinus rhythm, right axis deviation QRS, ST, QT: NORMAL LA, QRS, QT] Impression: NORMAL EKG Spoke with our thoracic surgeon here Dr. Hathaway recommended this patient needs to be transferred out for higher level of care because will need intensive radiation therapy to try to shrink the mass down. I discussed the case with the patient and she is agreeable to this Spoke with [facility] transfer, they are in process replacement now patient will be transferred/admitted to another facility Spoke with Dr. Bañuelos at [facility]. 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
[2017-08-04] MEDS ORDERED: KETOROLAC 15 MG INJ IV STA (00:13)
[2017-08-04] MEDS ORDERED: KETOROLAC 15 MG INJ ONE (00:18)
--- NOTE | 2017-08-04 06:43 | EN ---
Date/Time of Note Date/Time of Note DATE: 08/04/17 TIME: 06:41 ER Progress Note Spoke to [facility] this morning and after not being able to find an accepting physician overnight they currently have one. I spoke with physician who says that Dr. Fountain of the transfer team accepts the transfer. She will be transferred via BLS. Arrangements are being made for the transfer. The patient is still stable condition with occasional mild tachycardia and mild shortness of breath. GUDELIA BOWLING DO Aug 04, 2017 06:42
[2017-08-04 11:22] VITALS: BP 115/64; PULSE 81; TEMP 98.4
== END 2017-08-04 12:25 | disposition short-term general hospital (02) ==
LOC: FTE 13:26 → E/R 08-04 12:25
DX: I87.1 Compression of vein (principal); C76.1 Malignant neoplasm of thorax; R06.02 Shortness of breath
CPT/HCPCS: 36415; 71260; 80053; 81001; 85025; 85610; 85730; 93005; 96374; J1885; J7030; Q9967; Z7502; Z7610